=== PATIENT | female | born 1930 | race Caucasian/White ===

== ENCOUNTER → 2022-02-23 | Outpatient (CLI) | payer MEDICARE | LOC: WCC 08:30 | DX: S81.801A Unspecified open wound, right lower leg, initial encounter (principal); E11.622 Type 2 diabetes mellitus with other skin ulcer; I25.10 Atherosclerotic heart disease of native coronary artery without angina pectoris; I10 Essential (primary) hypertension; C84.40 Peripheral T-cell lymphoma, not elsewhere classified, unspecified site; Z92.3 Personal history of irradiation; Z79.899 Other long term (current) drug therapy ==

== ENCOUNTER → 2022-03-10 | Outpatient (CLI) | payer MEDICARE | LOC: WCC 07:15 | DX: S81.801A Unspecified open wound, right lower leg, initial encounter (principal); E11.622 Type 2 diabetes mellitus with other skin ulcer; I25.10 Atherosclerotic heart disease of native coronary artery without angina pectoris; I10 Essential (primary) hypertension; C84.40 Peripheral T-cell lymphoma, not elsewhere classified, unspecified site; E11.36 Type 2 diabetes mellitus with diabetic cataract; H26.9 Unspecified cataract; X58.XXXA Exposure to other specified factors, initial encounter; Z72.3 Lack of physical exercise; Z92.3 Personal history of irradiation; Z92.21 Personal history of antineoplastic chemotherapy ==

== ENCOUNTER → 2022-03-17 | Outpatient (CLI) | payer MEDICARE | END | disposition home or self-care (01) | LOC: WCC 06:50 | PROC: 0JBN0ZZ Excision of Right Lower Leg Subcutaneous Tissue and Fascia, Open Approach (ICD-10-PCS; principal; 2022-03-17) | DX: E11.622 Type 2 diabetes mellitus with other skin ulcer (principal); L97.819 Non-pressure chronic ulcer of other part of right lower leg with unspecified severity; I25.10 Atherosclerotic heart disease of native coronary artery without angina pectoris ==

== ENCOUNTER → 2022-03-31 | Outpatient (CLI) | payer MEDICARE | END | disposition home or self-care (01) | LOC: WCC 07:54 | DX: T24.302A Burn of third degree of unspecified site of left lower limb, except ankle and foot, initial encounter (principal); T25.312A Burn of third degree of left ankle, initial encounter; Z79.899 Other long term (current) drug therapy; E11.622 Type 2 diabetes mellitus with other skin ulcer; I25.10 Atherosclerotic heart disease of native coronary artery without angina pectoris; I10 Essential (primary) hypertension; C84.40 Peripheral T-cell lymphoma, not elsewhere classified, unspecified site; Z92.3 Personal history of irradiation ==

== ENCOUNTER → 2022-04-13 | Outpatient (CLI) | payer MEDICARE | LOC: WCC 07:59 | DX: T24.302A Burn of third degree of unspecified site of left lower limb, except ankle and foot, initial encounter (principal); T25.312A Burn of third degree of left ankle, initial encounter; L59.8 Other specified disorders of the skin and subcutaneous tissue related to radiation; E11.622 Type 2 diabetes mellitus with other skin ulcer; I25.10 Atherosclerotic heart disease of native coronary artery without angina pectoris; I10 Essential (primary) hypertension; C84.40 Peripheral T-cell lymphoma, not elsewhere classified, unspecified site; Z92.3 Personal history of irradiation; Z79.899 Other long term (current) drug therapy ==

== ENCOUNTER → 2022-05-05 | Outpatient (CLI) | payer MEDICARE | END | disposition home or self-care (01) | LOC: WCC 07:19 | DX: T24.302A Burn of third degree of unspecified site of left lower limb, except ankle and foot, initial encounter (principal); T25.312A Burn of third degree of left ankle, initial encounter; L59.8 Other specified disorders of the skin and subcutaneous tissue related to radiation; E11.622 Type 2 diabetes mellitus with other skin ulcer; I25.10 Atherosclerotic heart disease of native coronary artery without angina pectoris; I10 Essential (primary) hypertension; C84.40 Peripheral T-cell lymphoma, not elsewhere classified, unspecified site; Z92.3 Personal history of irradiation; Z79.899 Other long term (current) drug therapy ==

== ENCOUNTER → 2022-05-19 | Outpatient (CLI) | payer MEDICARE | END | disposition home or self-care (01) | LOC: WCC 07:34 | DX: T25.312A Burn of third degree of left ankle, initial encounter (principal); T24.302A Burn of third degree of unspecified site of left lower limb, except ankle and foot, initial encounter; E11.622 Type 2 diabetes mellitus with other skin ulcer; I25.10 Atherosclerotic heart disease of native coronary artery without angina pectoris; I10 Essential (primary) hypertension; Z79.899 Other long term (current) drug therapy ==